=== PATIENT | male | born 1970 | race Two or more races ===

== ENCOUNTER → 2016-08-05 | Outpatient (CLI) | payer OTHER ==
[~2016-08-05] MED LIST: FLEXERIL10 M1 PO; MEDI-MECLIZINE25 M1 PO; MOTRIN IB200 M1 PO; NAPROSYN250 M1 PO; ZOFRAN ODT4 MG PO
--- NOTE | ~2016-08-05 | US6 ---
[facility] A Service of [facility] RADIOLOGY TEXT RESULTS PATIENT: ALPA DANIEL LOCATION: CGUS : 70 UNIT #: [id number] AGE: [address]: JOSÉ LUIS HOWELL MD SEX: M ORDER DR: [id number] [facility]. [place], [place] [address] [id number] O MR#: [id number] Acc #: [id number] NAME: THOMAS DANIEL : 1970 SEX: M STUDY DATE/TIME: 08/05/2016 10:36 UNIT: CGUS ROOM: STUDY DESCRIPTION: US Abdominal Limited Attending Physician: José Luis Howell M.D. Referring Physician: José Luis Howell M.D. Ordering Physician: José Luis Howell M.D. Primary Care Physician: José Luis Howell M.D. MEDICAL IMAGING REPORT This report is preliminary unless electronic signature is present EXAM Right upper quadrant abdominal ultrasound. INDICATIONS Right upper quadrant abdominal pain for the past 3-4. PROCEDURE Garber-scale and Doppler imaging right upper quadrant of the abdomen. COMPARISON 04/25/2013 FINDINGS Pancreas is not well seen but visualized portions are unremarkable. The liver measures 13.5 cm and has increased echotexture compared with the right kidney. Right kidney measures 9.8 cm and is unremarkable. Unremarkable gallbladder. Common duct measures 3 mm. IMPRESSION Increased liver echotexture suspicious for steatosis. This could be confirmed with unenhanced CT or an MRI of the abdomen. Dictated by... Pal Hermosillo M.D. THIS IS AN ELECTRONICALLY VERIFIED REPORT Pal Hermosillo M.D. at 08/08/2016 7:43 AM EED/satya TD: 08/05/2016 13:42 JOB #: [id number] MEDICAL IMAGING REPORT [facility] A Service of [facility] RADIOLOGY TEXT RESULTS PATIENT: ALPA DANIEL LOCATION: CGUS : 70 UNIT #: [id number] AGE: [address]: JOSÉ LUIS HOWELL MD SEX: M ORDER DR: Page 1 of 1 COPY
== END | disposition home or self-care (01) ==
LOC: CGUS 10:21
DX: R10.11 Right upper quadrant pain (principal); R93.2 Abnormal findings on diagnostic imaging of liver and biliary tract
CPT/HCPCS: 76705

== ENCOUNTER → 2016-09-09 | Outpatient (CLI) | payer OTHER ==
--- NOTE | ~2016-09-09 | NM22 ---
[facility] A Service of [facility] RADIOLOGY TEXT RESULTS PATIENT: ALPA DANIEL LOCATION: [facility] : [birth year] UNIT #: [id number] AGE: [address]: ULISES EASLEY MD SEX: M ORDER DR: [id number] [facility]. [place], [place] [address] [id number] O MR#: [id number] Acc #: [id number] NAME: THOMAS DANIEL : 1970 SEX: M STUDY DATE/TIME: 09/09/2016 12:40 UNIT: [facility] ROOM: STUDY DESCRIPTION: JULIA Hepatobiliary W GB Pharm Attending Physician: Ulises Easley M.D. Referring Physician: Ulises Easley M.D. Ordering Physician: Ulises Easley M.D. Primary Care Physician: Ulises Easley M.D. MEDICAL IMAGING REPORT This report is preliminary unless electronic signature is present EXAM Radionuclide hepatobiliary scan, 09/09/2016. HISTORY Pain. Right lateral abdomen pain x5 years. TECHNIQUE Following intravenous administration of 5.4 mCi technetium-99m Choletec, static images of the abdomen were obtained at 15 minute intervals over 60 minutes. The patient then received 1.3 mcg Kinevac by 30-minute intravenous infusion. Images obtained before and after infusion. Region of interest drawn around stomach, and gallbladder ejection fraction calculated. FINDINGS There is homogeneous distribution of radiotracer throughout the liver at 15 minutes post administration with radiotracer seen in gallbladder, common bile duct and duodenum at 15 minutes post administration, as well. During the remainder of the first hour of study, radiotracer accumulates in gallbladder and small bowel. With infusion of Kinevac, the 30-minute gallbladder ejection fraction is 98%. Normal is greater than or equal to 30%. IMPRESSION 1. Normal study. There is no evidence of acute cholecystitis or cystic duct obstruction. 2. Kinevac-stimulated gallbladder ejection fraction 98%. Normal is greater than or equal to 30%. [facility] of [facility] RADIOLOGY TEXT RESULTS PATIENT: ALPA DANIEL LOCATION: CN : 70 UNIT #: [id number] AGE: [address]: ULISES EASLEY MD SEX: M ORDER DR: Dictated by... Brayden James M.D. THIS IS AN ELECTRONICALLY VERIFIED REPORT Brayden James M.D. at 09/12/2016 8:13 AM MALLORY/winston TD: 09/09/2016 19:10 JOB #: [id number] MEDICAL IMAGING REPORT Page 1 of 1 COPY
== END | disposition home or self-care (01) ==
LOC: CNUC 09-02 12:00
DX: R10.11 Right upper quadrant pain (principal); G89.29 Other chronic pain
CPT/HCPCS: 78227; A9537; J2805

== ENCOUNTER → 2016-12-01 | Outpatient (CLI) | payer OTHER ==
--- NOTE | ~2016-12-01 | US116 ---
[facility] A Service of [facility] RADIOLOGY TEXT RESULTS PATIENT: THOMAS DANIEL [facility] LOCATION: [facility] : 70 UNIT #: [id number] AGE: [address]: ULISES EASLEY MD SEX: M ORDER DR: [id number] [facility] [address] [place], [place] [address] [id number] O MR#: [id number] Acc #: [id number] NAME: THOMAS DANIEL : 1970 SEX: M STUDY DATE/TIME: 12/01/2016 11:24 UNIT: CNIV ROOM: STUDY DESCRIPTION: US Soft Tissue Head/Neck Attending Physician: Ulises Easley M.D. Referring Physician: Ulises Easley M.D. Ordering Physician: Ulises Easley M.D. Primary Care Physician: Ulises Easley M.D. MEDICAL IMAGING REPORT This report is preliminary unless electronic signature is present EXAM Neck soft tissue ultrasound. DATE 12/01/2016 HISTORY Pain in the neck and knot in the region of the internal jugular vein. This has been felt by the patient within past 2 months. Physician's history states pain and prominence of vein. FINDINGS Targeted sonographic images performed in the right side of the neck of the patient's palpable complaint. A 9 x 8 x 5 mm lymph node is demonstrated superficially within the neck, about 3 mm deep to the skin layer. This lymph node maintains a normal fatty hilum, and is not pathologically enlarged. The right internal jugular vein is dilated but demonstrates normal color flow and is normal spectral Doppler flow. The right internal jugular vein is compressible, as well. No thrombus is seen. IMPRESSION The palpable complaint corresponds to a superficially located 9 mm lymph node which is not pathologically enlarged. Right internal jugular vein in the same vicinity is patent. Dictated by... Ibis Nixon M.D. THIS IS AN ELECTRONICALLY VERIFIED REPORT Ibis Nixon M.D. at 12/02/2016 8:54 AM ANA MARIA/dandre TD: 12/01/2016 19:36 [facility] A Service of [facility] RADIOLOGY TEXT RESULTS PATIENT: THOMAS DANIEL [facility] LOCATION: CNIV : 70 UNIT #: [id number] AGE: [address]: ULISES EASLEY MD SEX: M ORDER DR: JOB #: [id number] MEDICAL IMAGING REPORT Page 1 of 1 COPY
== END | disposition home or self-care (01) ==
LOC: CNIV 10:22
DX: M54.2 Cervicalgia (principal)
CPT/HCPCS: 76536